=== PATIENT | female | born 1995 | race Caucasian/White ===

== ENCOUNTER 2017-02-20 17:59 | Emergency (ER) | payer OTHER ==
[~2017-02-20] VITALS: Ht 162.6 cm; Wt 65.4 kg
[2017-02-20] MEDS ORDERED: ONDANSETRON ODT 4 MG ONE (18:20)
[2017-02-20] MEDS ORDERED: SODIUM CHLORIDE 0.9% 1,000ML IVBOLUS ONE (18:30)
[2017-02-20] MEDS ORDERED: ONDANSETRON ODT 4 MG PO ONE (18:30)
[2017-02-20] MEDS ORDERED: SODIUM CHLORIDE FLUSH 10ML SYR IVF ONE (18:30)
[2017-02-20 18:57] LABS: BLOOD UREA NITROGEN 17 mg/dL (7-18)
[2017-02-20 19:03] LABS: ASPARTATE AMINO TRANSFERASE 20 U/L (15-37)
[2017-02-20] MEDS ORDERED: ONDANSETRON 2MG/ML, 2ML ONE (20:15)
[2017-02-20] MEDS ORDERED: NAPR220C2 PO (20:40)
[2017-02-20] MEDS ORDERED: ONDANSETRON 2MG/ML, 2ML IVPush ONE (21:30)
[2017-02-20 21:55] VITALS: BP 116/70
== END 2017-02-20 21:57 | disposition home or self-care (01) ==
LOC: ED 21:51
DX: R11.2 Nausea with vomiting, unspecified (principal); R19.7 Diarrhea, unspecified; R10.9 Unspecified abdominal pain
CPT/HCPCS: 36415; 80053; 81003; 83690; 84703; 85025; 96361; 96374; 99284; J2405; J7030; Q0162

== ENCOUNTER 2018-05-07 09:52 | Emergency (ER) | payer OTHER ==
[~2018-05-07] VITALS: Ht 167.6 cm; Wt 69.0 kg
[~2018-05-07 09:52] MED LIST: NAPR220C2 PO
[2018-05-07 09:57] VITALS: BP 138/88
== END 2018-05-07 10:33 | disposition home or self-care (01) ==
LOC: ED 10:27
DX: S10.93XA Contusion of unspecified part of neck, initial encounter (principal); S00.83XA Contusion of other part of head, initial encounter; X58.XXXA Exposure to other specified factors, initial encounter; Y93.89 Activity, other specified; Y92.89 Other specified places as the place of occurrence of the external cause; Y99.8 Other external cause status
CPT/HCPCS: 99282